=== PATIENT | male | born 1975 | race Caucasian/White ===

== ENCOUNTER 2020-09-08 20:30 | Emergency (ER) | payer MEDICAID ==
[~2020-09-08] VITALS: Ht 180.3 cm; Wt 86.0 kg
[2020-09-08 22:00] VITALS: BP 137/86
[2020-09-08] MEDS ORDERED: HYDROcodone/acetaminophen 5mg/325mg tablet PO ONE (22:15)
[2020-09-08] MEDS ORDERED: ketorolac tromethamine 15mg/ml inj. IM ONE (22:15)
[2020-09-08] MEDS ORDERED: ondansetron 4mg rapidly disintigrating tab PO ONE (22:15)
[2020-09-08] MEDS ORDERED: ONDA4TAB6 PO (23:16)
[2020-09-08] MEDS ORDERED: HYDR-3965 PO (23:16)
== END 2020-09-09 02:08 | disposition home or self-care (01) ==
LOC: ER 20:31
DX: S52.571A Other intraarticular fracture of lower end of right radius, initial encounter for closed fracture (principal); M25.531 Pain in right wrist; Z86.14 Personal history of Methicillin resistant Staphylococcus aureus infection; Z79.899 Other long term (current) drug therapy; W19.XXXA Unspecified fall, initial encounter; Y93.89 Activity, other specified; Y92.89 Other specified places as the place of occurrence of the external cause; Y99.8 Other external cause status
CPT/HCPCS: 29125; 73110; 99283; J1885